=== PATIENT | male | born 1980 | race Caucasian/White ===

== ENCOUNTER 2017-06-28 22:18 | Emergency (ER) | payer SELFPAY ==
[~2017-06-28] VITALS: Ht 165.1 cm; Wt 64.0 kg
[2017-06-28] MEDS ORDERED: MORPHINE SULFATE 4 MG/ML CPJ (NOT FOR IM USE) IV STA (23:02)
[2017-06-28] MEDS ORDERED: ONDANSETRON HCL 4MG/2ML VIAL IV STA (23:02)
[2017-06-28] MEDS ORDERED: LORAZEPAM 2MG/ML CPJ IV ONE (23:15)
[2017-06-28 23:38] LABS: BASOPHILS % 0.7 % (0.0-2.0); EOSINOPHILS % 2.4 % (0.0-5.0); HEMATOCRIT. 46.4 % (42.0-52.0); HEMOGLOBIN. 15.8 g/dL (14.0-18.0); LYMPHOCYTES % 18.2 % (20.0-50.0); MEAN CORPUSCULAR HEMOGLOBIN 31.8 pg (28.0-32.0); MEAN CORPUSCULAR VOLUME 93.3 fL (80.0-94.0); MEAN PLATELET VOLUME 8.3 fl (7.4-10.4); MONOCYTES % 3.7 % (2.0-8.0); PLATELET 241 x1000/uL (130-400); RED BLOOD CELL COUNT 4.97 mill/uL (4.7-6.1); RED CELL DISTRIBUTION WIDTH 13.3 % (11.6-14.6)
[2017-06-28 23:50] LABS: CHLORIDE 110 mEq/L (98-107); ETHANOL BLOOD 189 mg/dL
[2017-06-29 03:50] VITALS: BP 104/60
== END 2017-06-29 03:58 | disposition home or self-care (01) ==
LOC: ER 22:18
DX: S13.4XXA Sprain of ligaments of cervical spine, initial encounter (principal); S29.9XXA Unspecified injury of thorax, initial encounter; F41.9 Anxiety disorder, unspecified; Y08.89XA Assault by other specified means, initial encounter; Y93.89 Activity, other specified; Y92.89 Other specified places as the place of occurrence of the external cause; Y99.8 Other external cause status
CPT/HCPCS: 36415; 70450; 71045; 72125; 80048; 85025; 96374; 96375; 99285; G0482; J2060; J2270; J2405; Z7610